=== PATIENT | female | born 1960 | race American Indian/Alaskan Native ===

== ENCOUNTER 2017-03-12 12:45 | Inpatient (IN) | payer BC ==
--- NOTE | 2017-03-12 13:14 | Emergency Department Report ---
HPI - General Chief Complaint: Dyspnea/Respdistress Time Seen by Provider: 03/12/17 12:49 - HPI HPI: This is a 56-year-old Afro-Niuean female presents to the emergency department via EMS from [facility] with complaint of shortness of breath, productive cough, wheezing. The patient has a history of COPD but is not oxygen dependent. She has a history of chronic bronchitis, CHF, and Durant's esophagus. She is due to have surgery secondary to her Durant's esophagus. The patient has an inhaler and breathing machine at home. However she forgot to bring her inhaler with her to [facility] and therefore was unable to treat or control her symptoms. She received breathing treatments, Solu-Medrol and magnesium in route and says she is feeling improved. She denies any chest pain, fever, back pain, nausea, vomiting or diaphoresis. ED Past Medical Hx - Past Medical History Previous Medical History?: Yes Hx Hypertension: Yes Hx Heart Attack/AMI: Yes (2000) Hx Congestive Heart Failure: Yes Hx Diabetes: No Hx Renal Disease: No Hx Asthma: Yes Hx COPD: Yes Additional medical history: high cholesterol. hypothyroidism. Barretts esophagitis. LVH. varicose veins; PVD - Surgical History Past Surgical History?: Yes Hx Coronary Stent: No Hx Open Heart Surgery: No Hx Pacemaker: No Additional Surgical History: partial hysterectomy, vascular procedure on left leg - Social History Smoking Status: Former Smoker Substance Use Type: Alcohol - Medications Home Medications: Home Medications Medication Instructions Recorded Confirmed Last Taken Type Aspirin [Aspirin BABY CHEW TAB] 81 mg PO QDAY 10/01/14 10/01/14 09/30/14 History Cholecalciferol (Vitamin D3) 5,000 unit PO DAILY 10/01/14 10/01/14 09/30/14 History [Vitamin D3] ISOSORBIDE MONOnitrate [Imdur ER] 30 mg PO DAILY 10/01/14 10/01/14 09/30/14 History Levothyroxine [Synthroid] 25 mcg PO DAILY 10/01/14 10/01/14 Unknown History ALBUTEROL Inhaler [ProAir HFA 2 puff IH QID PRN #1 inhalation 10/02/14 Unknown Rx Inhaler] Albuterol Sulfate [Albuterol 0.63% 0.63 mg IH TID PRN #30 ml 10/02/14 Unknown Rx NEBS] Carvedilol [Coreg] 6.25 mg PO BID #60 tablet 10/02/14 Unknown Rx Pantoprazole [Protonix] 40 mg PO BID #60 tablet 10/02/14 Unknown Rx Simvastatin [Zocor TAB] 20 mg PO QHS #30 tablet 10/02/14 Unknown Rx Diazepam [Valium] 10 mg PO QHS PRN #6 tab 06/13/16 Unknown Rx Ibuprofen [Motrin] 400 mg PO Q8H PRN #10 tablet 06/13/16 Unknown Rx ED Review of Systems ROS: Stated complaint: FLORES Other details as noted in HPI Comment: All other systems reviewed and negative Constitutional: denies: chills, fever Eyes: denies: eye pain, eye discharge, vision change ENT: denies: ear pain, throat pain Respiratory: cough, shortness of breath, wheezing Cardiovascular: denies: chest pain, edema Gastrointestinal: denies: abdominal pain, nausea, diarrhea Genitourinary: denies: urgency, dysuria, discharge Musculoskeletal: denies: back pain, joint swelling, arthralgia Skin: denies: rash, lesions Neurological: denies: headache, weakness, paresthesias Physical Exam - Physical Exam Vital Signs: Vital Signs 03/12/17 12:46 Temperature 98.4 F Pulse Rate 85 Respiratory 22 Rate Blood Pressure 173/85 O2 Sat by Pulse 97 Oximetry Physical Exam: GENERAL: The patient is well-developed well-nourished. HEENT: Normocephalic. Atraumatic. Extraocular motions are intact. Patient has moist mucous membranes. NECK: Supple. Trachea is midline. CHEST/LUNGS: Moderate wheezing throughout the chest. There is tachypnea but no accessory muscle use. There is no respiratory distress noted. HEART/CARDIOVASCULAR: Regular. There is no tachycardia. There is no gallop rub or murmur. ABDOMEN: Abdomen is soft, nontender. Patient has normal bowel sounds. There is no abdominal distention. SKIN: There is no rash. There is no edema. There is no diaphoresis. NEURO: The patient is awake, alert, and oriented. The patient is cooperative. The patient has no focal neurologic deficits. The patient has normal speech. MUSCULOSKELETAL: There is no tenderness or deformity. There is no limitation range of motion. There is no evidence of acute injury. ED Course Vital Signs 03/12/17 12:46 Temperature 98.4 F Pulse Rate 85 Respiratory 22 Rate Blood Pressure 173/85 O2 Sat by Pulse 97 Oximetry ED Medical Decision Making - Lab Data Result diagrams: 03/12/17 13:01 03/12/17 13:01 - Radiology Data Radiology results: report reviewed, image reviewed interpreted by me: Chest x-ray did not show any acute process. Heart is normal shape and size. No effusions. No pneumothorax. No signs of pneumonia seen. CT angiography of the chest shows a small peripheral pulmonary embolus to the left upper lobe laterally and inferiorly. - Medical Decision Making 56-year-old female presents with acute shortness of breath. There is most likely a COPD exacerbation component but the patient was also found to have a small pulmonary embolus. She will be admitted to the hospital for further evaluation and treatment and has been accepted for admission by the hospitalist , Dr. Kevin. - Differential Diagnosis COPD, asthma, PE, PA Critical Care Time: No Critical care attestation.: If time is entered above; I have spent that time in minutes in the direct care of this critically ill patient, excluding procedure time. ED Disposition Clinical Impression: History of Durant's esophagus, COPD exacerbation, Pulmonary embolism HTN (hypertension) Qualifiers: Hypertension type: essential hypertension Qualified Code(s): I10 - Essential ( primary) hypertension Disposition: 09 OP ADMIT IP TO THIS HOSP Is pt being admited?: Yes Condition: Stable Time of Disposition: 15:47
--- NOTE | 2017-03-12 13:28 | XRay Report ---
AP CHEST :03/12/17 12:45:00 CLINICAL: Shortness of breath. COMPARISON:05/15/15 FINDINGS: Normal heart and pulmonary vasculature. The lungs are normally expanded and clear. The bones and soft tissues are normal. IMPRESSION: Normal.No acute cardiopulmonary process.
[2017-03-12 13:33] LABS: Basophils % (Auto) 0.2 % (0.0-1.8); Hematocrit 44.4 % (30.3-42.9); Hemoglobin 14.4 gm/dl (10.1-14.3); Mean Corpuscular HGB Conc 32 % (30-34); Mean Corpuscular Hemoglobin 30 pg (28-32); Mean Corpuscular Volume 91 fl (79-97); Platelet Count 170 K/mm3 (140-440); Red Blood Count 4.89 M/mm3 (3.65-5.03); Red Cell Distribution Width 14.3 % (13.2-15.2); White Blood Count 6.1 K/mm3 (4.5-11.0)
[2017-03-12 13:37] LABS: Anion Gap 20 mmol/L; BUN/Creatinine Ratio 13.75; Blood Urea Nitrogen 11 mg/dL (7-17); Calcium 9.8 mg/dL (8.4-10.2); Carbon Dioxide 25 mmol/L (22-30); Chloride 102.1 mmol/L (98-107); Glucose 100 mg/dL (65-100); Potassium 4.2 mmol/L (3.6-5.0); Sodium 143 mmol/L (137-145)
[2017-03-12] MEDS ORDERED: NACL ONE (14:15)
[2017-03-12] MEDS ORDERED: PROVENTIL IH ONE (14:40)
--- NOTE | 2017-03-12 15:40 | Cat Scan Report ---
FINAL REPORT PROCEDURE: CT ANGIO CHEST TECHNIQUE: Computerized tomographic angiography of the chest was performed during the IV injection of iodinated nonionic contrast including image processing. The image data was postprocessed using 2-dimensional multiplanar reformatted (MPR) and 3-dimensional (MIP and/or volume rendered) techniques. HISTORY: SOB, elevated dimer COMPARISON: No prior studies are available for comparison. FINDINGS: Pulmonary outflow tract, right and left main pulmonary arteries and their proximal branches: There is a small filling defects seen in the inferior lateral aspect of the left upper lobe seen on coronal image sixty-three series 201, sagittal reconstruction image 103 series 2 and a few of the adjacent images and MIPS reformatted image 33 series 203. The small filling defect is consistent with a small pulmonary embolus. Pulmonary outflow branch right and left main pulmonary arteries and the remainder of the peripheral branches otherwise appear clear. Pericardium: No evidence of pericardial effusion. Thoracic aorta: No evidence of aneurysmal dilatation or dissection. Coronary arteries: Are unremarkable. Mediastinum and hilar regions: Nonspecific subcentimeter lymph nodes are visualized. No pathologically enlarged lymph nodes or masses are identified. Lung Calixto: Minimal linear atelectasis seen in the lung bases. Lungs otherwise are clear. Upper abdomen: No acute or focal abnormality is seeen. Other: No acute bony abnormalities are seen. IMPRESSION: Small peripheral pulmonary embolus peripheral branch left upper lobe laterally, inferiorly. Minimal linear atelectasis seen in the lung bases. Lungs otherwise are clear per
--- NOTE | 2017-03-12 16:24 | History and Physical Report ---
History of Present Illness Chief complaint: Im so short of breath History of present illness: 56 YO Female with COPD, CHF Systolic (EF 35%), HTN, PR, HLD, Hypothyroidism, Barrets Esophagus, PVD, Obesity, Asthma presents to ED for evaluation. Pt states that she has been experiencing shortness of breath, productive cough, wheezing for the past 3 days with worsening symptoms over the past 3 hours. Pt was travelling to [facility] and had worsening symptoms but did not have her inhaler. Pt seen and evaluated in ED and found to be in respiratory distress. Pt placed on supplemental oxygen, and treated with nebulizer therapy. Past History Past Medical History: COPD, heart failure, hypertension, hyperlipidemia, hypothyroidism, PVD Past Surgical History: hysterectomy, Other (Left leg surgery) Social history: single. denies: smoking, alcohol abuse, prescription drug abuse Family history: hypertension Medications and Allergies Allergies Allergy/AdvReac Type Severity Reaction Status Date / Time lisinopril [From Zestril] Allergy Shortness Verified 03/12/17 17:51 of Breath Home Medications Medication Instructions Recorded Confirmed Last Taken Type Aspirin [Aspirin BABY CHEW TAB] 81 mg PO QDAY 10/01/14 10/01/14 09/30/14 History Cholecalciferol (Vitamin D3) 5,000 unit PO DAILY 10/01/14 10/01/14 09/30/14 History [Vitamin D3] ISOSORBIDE MONOnitrate [Imdur ER] 30 mg PO DAILY 10/01/14 10/01/14 09/30/14 History Levothyroxine [Synthroid] 25 mcg PO DAILY 10/01/14 10/01/14 Unknown History ALBUTEROL Inhaler [ProAir HFA 2 puff IH QID PRN #1 inhalation 10/02/14 Unknown Rx Inhaler] Albuterol Sulfate [Albuterol 0.63% 0.63 mg IH TID PRN #30 ml 10/02/14 Unknown Rx NEBS] Carvedilol [Coreg] 6.25 mg PO BID #60 tablet 10/02/14 Unknown Rx Pantoprazole [Protonix] 40 mg PO BID #60 tablet 10/02/14 Unknown Rx Simvastatin [Zocor TAB] 20 mg PO QHS #30 tablet 10/02/14 Unknown Rx Diazepam [Valium] 10 mg PO QHS PRN #6 tab 06/13/16 Unknown Rx Ibuprofen [Motrin] 400 mg PO Q8H PRN #10 tablet 06/13/16 Unknown Rx Review of Systems All systems: negative Cardiovascular: shortness of breath Exam - Constitutional Vitals: Temp Pulse Resp BP Pulse Ox 98.4 F 82 20 173/85 97 03/12/17 12:46 03/12/17 15:49 03/12/17 15:49 03/12/17 12:46 03/12/17 15:11 General appearance: Present: mild distress, obese - EENT Eyes: Present: PERRL ENT: hearing intact, clear oral mucosa - Neck Neck: Present: supple, normal ROM - Respiratory Respiratory effort: labored Respiratory: bilateral: diminished - Cardiovascular Heart Sounds: Present: S1 & S2. Absent: rub, click - Extremities Extremities: pulses symmetrical, No edema Extremity abnormal: edema Peripheral Pulses: within normal limits - Abdominal General gastrointestinal: Present: soft, non-tender, non-distended, normal bowel sounds Female genitourinary: Present: normal - Integumentary Integumentary: Present: clear, warm, dry - Musculoskeletal Musculoskeletal: gait normal, strength equal bilaterally - Psychiatric Psychiatric: appropriate mood/affect, intact judgment & insight - Neurologic Neurologic: CNII-XII intact, moves all extremities Results - Labs CBC & Chem 7: 03/12/17 13:01 03/12/17 13:01 Labs: Abnormal lab results 03/12/17 03/12/17 Range/Units 13:01 13:01 Hgb 14.4 H (10.1-14.3) gm/dl Hct 44.4 H (30.3-42.9) % D-Dimer 1194.69 H (0-234) ng/mlDDU Assessment and Plan - Patient Problems (1) Acute respiratory failure Current Visit: Yes Status: Acute Qualifiers: Respiratory failure complication: R Plan to address problem: supplemental oxygen, nebs, aspiration precautions, counseling regarding avoiding respiratory triggers. (2) COPD exacerbation Current Visit: Yes Status: Acute Plan to address problem: Supplemental oxygen, nebs, steroids, IV abx, supportive care. (3) Pulmonary embolism Current Visit: Yes Status: Acute Qualifiers: Pulmonary embolism type: P Chronicity: C Acute cor pulmonale presence: A Plan to address problem: Therapeutic anticoagulation, supportive care. (4) Accelerated hypertension Current Visit: Yes Status: Acute Plan to address problem: monitor bp q shift, resume home medication. (5) DVT prophylaxis Current Visit: Yes Status: Acute
[2017-03-12] MEDS ORDERED: DUONEB *Not for PRN Use IH (17:00)
[2017-03-12] MEDS ORDERED: DULCOLAX PR PRN (17:07)
[2017-03-12] MEDS ORDERED: MILK OF MAGNESIA PO PRN (17:07)
[2017-03-12] MEDS ORDERED: ZOFRAN IV PRN (17:07)
[2017-03-12] MEDS ORDERED: TYLENOL PO PRN (17:07)
[2017-03-12] MEDS ORDERED: PROVENTIL IH PRN (17:24)
[2017-03-12] MEDS ORDERED: VALIUM PO PRN (17:38)
[2017-03-12] MEDS: ZITHROMAX 500 MG in NACL 0.9% 250ML 250 ML IV SCH (18:50)
[2017-03-12] MEDS: COREG PO SCH (23:13)
[2017-03-12] MEDS: ZOCOR PO SCH (23:13)
[2017-03-12] MEDS: ELIQUIS PO SCH (23:13)
[2017-03-12] MEDS: PROTONIX PO SCH (23:13)
[2017-03-13] MEDS: TYLENOL PO PRN ×3 (03:38→20:08)
[2017-03-13] MEDS: SYNTHROID PO SCH (05:11)
[2017-03-13] MEDS: IMDUR PO SCH (09:41)
[2017-03-13] MEDS: VITAMIN D3 PO SCH (09:42)
[2017-03-13] MEDS: BABY ASPIRIN PO SCH (09:43)
[2017-03-13] MEDS: ELIQUIS PO SCH ×2 (09:43→21:54)
[2017-03-13] MEDS: PROTONIX PO SCH ×2 (09:44→21:54)
[2017-03-13] MEDS: COREG PO SCH ×2 (09:44→21:55)
--- NOTE | 2017-03-13 10:12 | Progress Note ---
Assessment and Plan Assessment and plan: 1 Acute respiratory failure Frequent respiratory assessment When necessary oxygen Discussed with the patient regarding avoiding respiratory triggers 2 COPD exacerbation Duoneb Q8hrs ordered IV steroid Solu-Medrol ordered Continue IV antibiotic 3 Pulmonary embolism Patient started on anticoagulation Eliquis supportive care. 4 Accelerated hypertension resume antihypertensive home blood pressure medicine Closely monitor blood pressures 5. Hyperlipidemia We will resume home antilipid medicine Discussed with the patient the importance of physical exercise, low fat diet to improve cardiovascular diseases. 6 DVT prophylaxis Continue Eliquis History Interval history: Patient has uneventful overnight, Patient denies having shortness of breath, chest pain but reports productive cough and wheezing. Patient currently on 2LNC with oxygen saturation >92%, no acute reparatory distress noted. Hospitalist Physical - Constitutional Vitals: Temp Pulse Resp BP Pulse Ox 97.8 F 76 24 136/68 97 03/13/17 08:25 03/13/17 09:41 03/13/17 08:25 03/13/17 09:41 03/13/17 08:25 General appearance: Present: mild distress, obese - EENT Eyes: Present: PERRL ENT: hearing intact - Neck Neck: Present: supple - Respiratory Respiratory effort: labored, other (Mild Labored ) Respiratory: negative: wheezing - Cardiovascular Heart rate: 76 Rhythm: regular Heart Sounds: Present: S1 & S2 - Extremities Extremities: no ischemia, No edema Peripheral Pulses: within normal limits - Abdominal General gastrointestinal: soft, non-tender - Integumentary Integumentary: Present: clear, warm, dry - Psychiatric Psychiatric: appropriate mood/affect - Neurologic Neurologic: CNII-XII intact - Allied Health Allied health notes reviewed: nursing Results - Labs CBC & Chem 7: 03/12/17 13:01 03/12/17 13:01 Labs: Laboratory Last Values WBC 6.1 K/mm3 (4.5-11.0) 03/12/17 13:01 RBC 4.89 M/mm3 (3.65-5.03) 03/12/17 13:01 Hgb 14.4 gm/dl (10.1-14.3) H 03/12/17 13:01 Hct 44.4 % (30.3-42.9) H 03/12/17 13:01 MCV 91 fl (79-97) 03/12/17 13:01 MCH 30 pg (28-32) 03/12/17 13:01 MCHC 32 % (30-34) 03/12/17 13:01 RDW 14.3 % (13.2-15.2) 03/12/17 13:01 Plt Count 170 K/mm3 (140-440) 03/12/17 13:01 Lymph % (Auto) 32.8 % (13.4-35.0) 03/12/17 13:01 Churchill % (Auto) 6.7 % (0.0-7.3) 03/12/17 13:01 Eos % (Auto) 4.0 % (0.0-4.3) 03/12/17 13:01 Baso % (Auto) 0.2 % (0.0-1.8) 03/12/17 13:01 Lymph # 2.0 K/mm3 (1.2-5.4) 03/12/17 13:01 Churchill # 0.4 K/mm3 (0.0-0.8) 03/12/17 13:01 Eos # 0.2 K/mm3 (0.0-0.4) 03/12/17 13:01 Baso # 0.0 K/mm3 (0.0-0.1) 03/12/17 13:01 Seg Neutrophils % 56.3 % (40.0-70.0) 03/12/17 13:01 Seg Neutrophils # 3.4 K/mm3 (1.8-7.7) 03/12/17 13:01 D-Dimer 1194.69 ng/mlDDU (0-234) H 03/12/17 13:01 Sodium 143 mmol/L (137-145) 03/12/17 13:01 Potassium 4.2 mmol/L (3.6-5.0) 03/12/17 13:01 Chloride 102.1 mmol/L (98-107) 03/12/17 13:01 Carbon Dioxide 25 mmol/L (22-30) 03/12/17 13:01 Anion Gap 20 mmol/L 03/12/17 13:01 BUN 11 mg/dL (7-17) 03/12/17 13:01 Creatinine 0.8 mg/dL (0.7-1.2) 03/12/17 13:01 Estimated GFR > 60 ml/min 03/12/17 13:01 BUN/Creatinine Ratio 13.75 % 03/12/17 13:01 Glucose 100 mg/dL (65-100) 03/12/17 13: Calcium 9.8 mg/dL (8.4-10.2) 03/12/17 13:01 Troponin T < 0.010 ng/mL (0.00-0.029) 03/12/17 13:01 NT-Pro-B Natriuret Pep 173.0 pg/mL (0-900) 03/12/17 13:01
[2017-03-13] MEDS: DUONEB *Not for PRN Use IH SCH ×2 (13:40→19:39)
--- NOTE | 2017-03-13 16:33 | Admit Criteria Form ---
Admission Criteria Documentation: PULMONARY EMBOLISM Clinical Indications for Admission to Inpatient Care (Place 'X' for any and all applicable criteria): Admission is indicated for 1 or more of the following(1)(2)(3)(4)(5)(6)(7) [ ]I. Hypoxemia [ ]II. Vital sign abnormality (8) indicated by ALL of the following: [ ]a) Vital sign findings not as expected for chronic patient condition or baseline (eg, intentionally low, blood pressure in heart failure) [ Xb) Vital sign abnormality as indicated by 1 or more of the following [X ]l) Tachycardia [ ]ll) Hypotension [ ]lll) Orthostatic vital sign changes [ ]III. History of cancer [X ]IV. History of chronic cardiopulmonary disease (eg. CHF, coronary artery disease, COPD, cor pulmonale) [ ]V. Cardiac arrhythmias of intermediate concern [ ]. Right ventricular dysfunction (eg, by echocardiogram) [ ]VII. Positive cardiac biomarker (eg, troponin T or I > 0.1 ng/mL (mcg/L), highly sensitive troponin I assay greater than 0.014 ng/mL (mcg/L), BNP or NT proBNP > assay threshold)(8 )(10)(11) [ ]VIII. Need for IV narcotics (eg, to treat dyspnea) 1 or more of following: [ ]a) Bleeding before anticoagulation [ ]b) Recent surgery (eg, within 3 months) that increases risk of catastrophic bleeding (eg, spinal surgery, intracranial surgery, cardiovascular surgery) [ ]c) Recent GI bleeding (eg, within 3 months) or known increased risk of GI bleed (eg,esophageal varices, current ulcer) [ ]d) Recent (eg, within 3 months) ischemic stroke [ ]e) History of intracranial bleeding (eg, hemorrhagic stroke) [ ]f) History of active bleeding when anticoagulated [ ]g) Active substance abuse [ ]h) Other risk factor thought to place patient at high risk such that ability to rapidly reverse reversal agent) [ ]X. Documented extensive thrombosis (eg, clot in vena cava or above iliofemoral bifurcation) [ ]Xl. Thrombolysis (eg, catheter-directed) or pharmacomechanical thrombectomy needed[A][B](8) [ ]XIl. Vena cava filter placement needed (eg, unable to anticoagulate)[C](8) [ ]Xlll. with delivery planned (eg, 37 or more weeks' gestation)(14 ) [ ]XlV. Limb-threatening thrombosis (eg, phlegmasia cerula dolens) [ ]XV. Embolism while on anti-coagulation [ ]XVl. Contraindication to outpatient use of medication with rapid anticoagulation effect as indicated by ALL of the following: [ ] a) Contraindication to use of oyk-jbqovxsen-xiirqy heparin[E][F ] indicated by 1 or more of the following(16): [ ] i) Documented current or history of heparin-induced thrombocytopenia(15) [ ] ii) Severe thrombocytopenia (eg, platelet count less than 50 ,000/mm3 (50 x109/L)) [ ] iii) Allergy to heparin, sbj-pcubkgyty-zzqyjm heparin, or product component [ ] iv) Renal failure (creatinine clearance less than 30 mL/min/ 1.73m2 (0.50 mL/sec/1.73m2) or on dialysis) [ ] v) Need for neuraxial anesthesia or spinal puncture anticipated [ ] vi) Inability to manage self-injection (eg. By patient, caregiver, or visiting nurse) [ ] b) Contraindication to use of fondaparinux indicated by 1 or more of the following: [ ] i) Documented current or history of heparin-induced thrombocytopenia (15) [ ] ii) Severe thrombocytopenia (eg, platelet count less than 50 ,000/mm3 (50 x109/L)) [ ] iii) Allergy to fondaparinux, related drugs, or product components [ ] iv) Renal failure (creatinine clearance less than 30 mL/min/ 1.73m2 (0.50 mL/sec/1.73m2) or on dialysis) [ ] v) [ ] vi) Liver disease with coagulopathy (eg, elevated INR due to liver disease) [ ] vii) Mechanical heart valve [ ] viii) Need for neuraxial anesthesia or spinal puncture anticipated [ ] xi) Inability to manage self-injection (eg, by patient, caregiver, or visiting nurse) [ ] c) Contraindication to use of an oral direct thrombin inhibitor (eg, dabigatran) or an oral coagulation factor Xa inhibitor (eg, rivaroxaban, apixaban)[E][F] indicated by 1 or more of the following(17)(18): [ ] i) Severe thrombocytopenia (eg, platelet count less than 50, 000/mm3 (50 x109/L)) [ ] ii) Allergy to medication or product components x109/L)) [ ] iii) Renal failure (creatinine clearance less than 30 mL/min /1.73m2 (0.50 mL/sec/1.73m2) or on dialysis) [ ] iv) [ ] v) Liver disease with coagulopathy (eg, elevated INR due to liver disease) [ ] vi) Mechanical heart valve [ ] vii) Need for neuraxial anesthesia or spinal puncture anticipated [ ]XVll. Inpatient admission required rather than observation care (Also use Pulmonary Embolism: Observation Care guideline as appropriate) because of ANY ONE of the following: [ ] a) Significant autoimmune (thrombocytopenia) or coagulopathic reaction occurs in response to anticoagulation [ ] b) Respiratory symptoms (eg, tachypnea, dyspnea) that are severe or persistent [ ] c) Other condition, treatment, or monitoring requiring inpatient admission The original [employer] content created by [employer] has been revised. The portions of the content which have been revised are identified through the use of italic text or in bold, and [facility] has neither reviewed nor approved the modified material. All other unmodified content is copyright [employer]. Please see references footnoted in the original [employer] edition 2017 Admission Criteria Met: Yes
[2017-03-13] MEDS: ZITHROMAX 500 MG in NACL 0.9% 250ML 250 ML IV SCH (18:56)
--- NOTE | 2017-03-13 19:58 | Event Note ---
Date: 03/13/17 Reason seen and evaluated along with the nurse practitioner, medical records reviewed, formulated the plan of care. Physical examination performed, Agree with the plan of care, possible discharge home tomorrow on Eliquis and oral antibiotics
[2017-03-13] MEDS: ZOCOR PO SCH (21:54)
[2017-03-14] MEDS: TYLENOL PO PRN (02:13)
[2017-03-14] MEDS ORDERED: ALUM-MAG HYDROX-SIMETH 200-200-20MG/5ML PO ONE (02:45)
[2017-03-14] MEDS: SYNTHROID PO SCH (06:52)
--- NOTE | 2017-03-14 07:33 | Discharge Summary ---
<FRANKIE ROMAN - Last Filed: 03/21/17 14:22> Providers - Providers Date of Admission: 03/12/17 17:14 Date of discharge: 03/14/17 Attending physician: TAMI MURPHY Primary care physician: MANAGER VIDEO GAMES Hospitalization Condition: Stable Hospital course: Patient is a 56 years old Female with COPD, CHF Systolic (EF 35%), HTN, AR, HLD , Hypothyroidism, Barrets Esophagus, PVD, Obesity, Asthma presents to ED for evaluation. Patient came in with shortness of breath, productive cough, wheezing for the past 3 days with worsening symptoms over the past 3 hours. Patient was diagnosed with acute respiratory failure, Pulmonary embolism, accelerated hypertension and hyperlipidemia. She was treated with supplemental oxygen, aggressive nebulizer therapy, IV steroids, antihypertensive medication and antibiotics. Patient completed a full course of antibiotic. Also patient was treated with anticoagulant for pulmonary embolism. She is being discharged on oral anticoagulant. Also D/C with oral steroid taper upon discharge. Patient clinically improved and stable for discharge. Patient was advised to follow up with her primary care. Disposition: - TO HOME OR SELFCARE Core Measure Documentation - Palliative Care Palliative Care/ Comfort Measures: Not Applicable - Core Measures Any of the following diagnoses?: DVT/PE (plus) - VTE Discharge Requirements Deep Vein Thrombosis/Pulmonary Embolism Present on Admission: Yes Has pt received <5 days of overlap therapy or INR<2.0: No Anticoagulant overlap therapy prescribed at discharge: Yes Exam - Physical Exam Narrative exam: Patient verbalized feeling better and ready to go home. She denies shortness of breath, productive cough or wheezing - Constitutional Vitals: Temp Pulse Resp BP Pulse Ox 97.7 F 85 19 118/60 96 03/13/17 20:15 03/13/17 21:55 03/14/17 03:13 03/13/17 21:55 03/13/17 20:15 General appearance: Present: well-nourished - EENT Eyes: Present: PERRL ENT: hearing intact - Neck Neck: Present: supple - Respiratory Respiratory effort: normal Respiratory: bilateral: CTA - Cardiovascular Heart rate: 70 Rhythm: regular - Extremities Extremities: no ischemia Peripheral Pulses: within normal limits - Abdominal General gastrointestinal: Present: soft, non-tender Female genitourinary: Present: deferred - Rectal Rectal Exam: deferred - Integumentary Integumentary: Present: clear, warm, dry - Musculoskeletal Musculoskeletal: strength equal bilaterally - Psychiatric Psychiatric: appropriate mood/affect - Neurologic Neurologic: CNII-XII intact - Allied Health Allied health notes reviewed: nursing Plan Activity: no restrictions Weight Bearing Status: Weight Bear as Tolerated Diet: low fat, low cholesterol Follow up with: PRIMARY CARE, [Primary Care Provider] - 3-5 Days Prescriptions: Apixaban [Eliquis] 5 mg PO BID #42 tablet Apixaban [Eliquis] 2 tab PO BID #24 tablet predniSONE [Deltasone] 10 mg PO QDAY #10 tab <TAMI MURPHY - Last Filed: 03/22/17 07:18> Providers - Providers Date of Admission: 03/12/17 17:14 Attending physician: TAMI MURPHY Primary care physician: MANAGER VIDEO GAMES Hospitalization Hospital course: I saw and evaluated the patient. I agree with the findings and the plan of care as documented in the Nurse Practitioner's~note, with the following corrections and additions. Time spent for discharge: 32 min Core Measure Documentation - Palliative Care Palliative Care/ Comfort Measures: Not Applicable - VTE Discharge Requirements Has pt received <5 days of overlap therapy or INR<2.0: Yes Anticoagulant overlap therapy prescribed at discharge: No Contraindication No Overlap Therapy order at DC: Not Indicated (patient on Eliquis) Exam - Constitutional Vitals: Temp Pulse Resp BP Pulse Ox 97.9 F 70 18 127/65 99 03/14/17 11:13 03/14/17 11:13 03/14/17 11:13 03/14/17 11:13 03/14/17 11:13
[2017-03-14] MEDS: DUONEB *Not for PRN Use IH SCH (09:23)
[2017-03-14] MEDS ORDERED: ZITHROMAX PO SCH (10:00)
[2017-03-14] MEDS: BABY ASPIRIN PO SCH (10:20)
[2017-03-14] MEDS: PROTONIX PO SCH (10:20)
[2017-03-14] MEDS: COREG PO SCH (10:20)
[2017-03-14] MEDS: ELIQUIS PO SCH (10:21)
[2017-03-14] MEDS: IMDUR PO SCH (10:22)
[2017-03-14] MEDS: VITAMIN D3 PO SCH (10:22)
--- NOTE | 2017-03-14 12:09 | Discharge Summary ---
<TAMI MURPHY - Last Filed: 03/14/17 11:57> Providers - Providers Date of Admission: 03/12/17 17:14 Date of discharge: 03/14/17 Attending physician: TAMI MURPHY Primary care physician: COMMUNICATIONS TECHNOLOGIST Hospitalization Condition: Stable Disposition: DC-01 TO HOME OR SELFCARE Core Measure Documentation - Palliative Care Palliative Care/ Comfort Measures: Not Applicable - Core Measures Any of the following diagnoses?: DVT/PE - VTE Discharge Requirements Deep Vein Thrombosis/Pulmonary Embolism Present on Admission: Yes Has pt received <5 days of overlap therapy or INR<2.0: Yes (On eliquis) Anticoagulant overlap therapy prescribed at discharge: No Contraindication No Overlap Therapy order at DC: Not Indicated (On Eliquis) Exam - Constitutional Vitals: Temp Pulse Resp BP Pulse Ox 98.0 F 72 20 124/76 98 03/14/17 08:07 03/14/17 10:22 03/14/17 08:07 03/14/17 10:22 03/14/17 08:07 Plan Activity: no restrictions Diet: other (cardiac diet) Follow up with: PRIMARY CARE, [Primary Care Provider] - 3-5 Days Prescriptions: Apixaban [Eliquis] 5 mg PO BID #42 tablet Apixaban [Eliquis] 2 tab PO BID #24 tablet predniSONE [Deltasone] 10 mg PO QDAY #10 tab <FRANKIE ROMAN - Last Filed: 03/14/17 14:34> Providers - Providers Date of Admission: 03/12/17 17:14 Attending physician: TAMI MURPHY Primary care physician: HEMANTH URRUTIA MD Exam - Constitutional Vitals: Temp Pulse Resp BP Pulse Ox 97.9 F 70 18 127/65 99 03/14/17 11:13 03/14/17 11:13 03/14/17 11:13 03/14/17 11:13 03/14/17 11:13
[2017-03-14 12:38] VITALS: BP 127/65
== END 2017-03-14 13:10 | disposition home or self-care (01) | DRG 175 ==
LOC: ED 12:45 → 3A 17:14
PROVIDERS: ADMIT Internal Medicine; ATTEND Internal Medicine
DX: I26.99 Other pulmonary embolism without acute cor pulmonale (principal); J96.00 Acute respiratory failure, unspecified whether with hypoxia or hypercapnia; J44.1 Chronic obstructive pulmonary disease with (acute) exacerbation; I50.20 Unspecified systolic (congestive) heart failure; I11.0 Hypertensive heart disease with heart failure; K22.70 Barrett's esophagus without dysplasia; I25.2 Old myocardial infarction; E03.9 Hypothyroidism, unspecified; E78.5 Hyperlipidemia, unspecified; I73.9 Peripheral vascular disease, unspecified; E66.9 Obesity, unspecified; Z68.35 Body mass index [BMI] 35.0-35.9, adult; Z82.49 Family history of ischemic heart disease and other diseases of the circulatory system; Z88.8 Allergy status to other drugs, medicaments and biological substances; Z90.710 Acquired absence of both cervix and uterus; Z87.891 Personal history of nicotine dependence; Z79.82 Long term (current) use of aspirin
CPT/HCPCS: 36415; 71010; 71275; 80048; 83880; 84484; 85025; 85379; 93005; 93010; 94640; 94644; 94760; J0456; J2920; J7050; Q9967

== ENCOUNTER 2017-05-28 09:37 | Emergency (ER) | payer BC ==
[2017-05-28] MEDS ORDERED: PROVENTIL IH ONE ×2 (09:46→12:53)
[2017-05-28] MEDS ORDERED: MAGNESIUM SULFATE 2GM/50ML 2 GM/50 ML BAG IV ONE (10:27)
[2017-05-28] MEDS ORDERED: DUONEB *Not for PRN Use IH ONE (10:28)
[2017-05-28] MEDS ORDERED: NACL 0.9% 1000 ML 1,000 ML IV ONE (10:28)
[2017-05-28 10:43] LABS: Hematocrit 38.7 % (30.3-42.9); Mean Corpuscular HGB Conc 34 % (30-34); Mean Corpuscular Hemoglobin 31 pg (28-32); Mean Corpuscular Volume 91 fl (79-97); Platelet Count 180 K/mm3 (140-440); Red Blood Count 4.25 M/mm3 (3.65-5.03); Red Cell Distribution Width 14.5 % (13.2-15.2); White Blood Count 8.3 K/mm3 (4.5-11.0)
[2017-05-28 10:52] LABS: INR 0.9 (0.87-1.13)
[2017-05-28 10:53] LABS: Partial Thromboplastin Time 25.2 Sec. (24.2-36.6)
[2017-05-28 11:00] LABS: Anion Gap 17 mmol/L; Blood Urea Nitrogen 18 mg/dL (7-17); Calcium 9.1 mg/dL (8.4-10.2); Carbon Dioxide 27 mmol/L (22-30); Chloride 101.1 mmol/L (98-107); Glucose 93 mg/dL (65-100); Potassium 4.1 mmol/L (3.6-5.0); Sodium 141 mmol/L (137-145)
--- NOTE | 2017-05-28 11:02 | XRay Report ---
Single view chest: Compared to 05/24/17. History: Difficulty breathing. Findings: Borderline cardiomegaly. Trachea is midline. No consolidation, pneumothorax or pleural effusion. Impression: No acute cardiopulmonary findings.
[2017-05-28 11:05] LABS: Alanine Aminotransferase 22 units/L (7-56); Albumin/Globulin Ratio 1.6 %; Alkaline Phosphatase 109 units/L (35-129); Creatine Kinase 239 units/L (30-135); Creatine Kinase MB 2.3 ng/mL (0.0-4.0); Total Protein 6.5 g/dL (6.3-8.2)
[2017-05-28 11:06] LABS: Bilirubin,Direct < 0.2 mg/dL (0-0.2)
--- NOTE | 2017-05-28 12:58 | Emergency Department Report ---
ED Shortness of Breath HPI - General Chief Complaint: Dyspnea/Respdistress Stated Complaint: SPITTING UP BLOOD Time Seen by Provider: 05/28/17 10:26 Source: patient Mode of arrival: Ambulatory Limitations: No Limitations - History of Present Illness Initial Comments: Patient was discharged from hospital yesterday. She placed her prescription and at her local pharmacy but it was not yet ready. She did not take a nap at home because she did not have her medicines as of yet. She states that she coughed and noticed a minimal amount of blood streaked sputum white phlegm. He' s had a recent CTA that was negative for pulmonary embolism she does not complain of chest pain. She is here for wheezing. MD Complaint: "asthma attack" -: minutes(s), hour(s) Consistency: constant Improves With: nothing Worsens With: nothing Known History Of: COPD Context: other (recent discharge) Associated Symptoms: denies other symptoms ( recent) - Related Data Home Medications Medication Instructions Recorded Confirmed Last Taken Aspirin [Aspirin BABY CHEW TAB] 81 mg PO QDAY 10/01/14 05/28/17 05/27/17 Cholecalciferol (Vitamin D3) 5,000 unit PO DAILY 10/01/14 05/28/17 05/27/17 [Vitamin D3] Citalopram [celeXA] 10 mg PO QDAY 05/25/17 05/28/17 05/27/17 ISOSORBIDE MONOnitrate [Imdur ER] 30 mg PO QDAY 05/25/17 05/28/17 05/27/17 Levothyroxine [Synthroid] 125 mcg PO QDAY 05/25/17 05/28/17 05/27/17 Loratadine [Claritin] 10 mg PO Q48H 05/25/17 05/28/17 05/27/17 Losartan [Cozaar] 50 mg PO QDAY 05/25/17 05/28/17 05/27/17 Mirtazapine [Remeron] 15 mg PO QHS 05/25/17 05/28/17 05/27/17 Apixaban [Eliquis] 5 mg PO BID 05/27/17 05/28/17 05/27/17 AtorvaSTATin [Lipitor] mg PO QHS 05/28/17 05/27/17 Previous Rx's Medication Instructions Recorded Last Taken Type ALBUTEROL Inhaler [ProAir HFA 2 puff IH QID PRN #1 inhalation 10/02/14 05/27/17 Rx Inhaler] Pantoprazole [Protonix TAB] 40 mg PO BID #60 tablet 10/02/14 05/27/17 Rx Albuterol Sulfate [Albuterol 0.63% 0.63 mg IH TID PRN #30 ml 05/27/17 05/27/17 Rx NEBS] Benzonatate [Tessalon Perles] 100 mg PO Q8HR PRN #30 capsule 05/27/17 05/27/17 Rx Metoprolol [Lopressor TAB] 50 mg PO BID #60 tablet 05/27/17 05/27/17 Rx Prednisone [predniSONE 10 mg 10 mg PO .TAPER #1 tab.ds.pk 05/27/17 05/27/17 Rx (6-Day Pack, 21 Tabs)] Azithromycin [Zithromax Z-YENIFER] 250 mg PO DAILY #6 tablet 05/28/17 Unknown Rx Allergies Allergy/AdvReac Type Severity Reaction Status Date / Time lisinopril [From Zestril] Allergy Shortness Verified 03/12/17 17:51 of Breath ED Review of Systems ROS: Stated complaint: SPITTING UP BLOOD Other details as noted in HPI Constitutional: denies: chills, fever Eyes: denies: eye pain, eye discharge, vision change ENT: denies: ear pain, throat pain Respiratory: see HPI, cough, wheezing. denies: shortness of breath Cardiovascular: denies: chest pain, palpitations Endocrine: no symptoms reported Gastrointestinal: denies: abdominal pain, nausea, diarrhea Genitourinary: denies: urgency, dysuria, discharge Musculoskeletal: denies: back pain, joint swelling, arthralgia Skin: denies: rash, lesions Neurological: denies: headache, weakness, paresthesias Psychiatric: denies: anxiety, depression Hematological/Lymphatic: denies: easy bleeding, easy bruising ED Past Medical Hx - Past Medical History Hx Hypertension: Yes Hx Heart Attack/AMI: Yes Hx Congestive Heart Failure: Yes Hx Diabetes: No Hx Renal Disease: No Hx Asthma: Yes Hx COPD: Yes Hx HIV: No Additional medical history: high cholesterol. hypothyroidism. Barretts esophagitis. LVH. varicose veins; PVD - Surgical History Hx Coronary Stent: No Hx Open Heart Surgery: No Hx Pacemaker: No Additional Surgical History: partial hysterectomy, vascular procedure on left leg - Social History Smoking Status: Never Smoker Substance Use Type: None - Medications Home Medications: Home Medications Medication Instructions Recorded Confirmed Last Taken Type Aspirin [Aspirin BABY CHEW TAB] 81 mg PO QDAY 10/01/14 05/28/17 05/27/17 History Cholecalciferol (Vitamin D3) 5,000 unit PO DAILY 10/01/14 05/28/17 05/27/17 History [Vitamin D3] ALBUTEROL Inhaler [ProAir HFA 2 puff IH QID PRN #1 inhalation 10/02/14 05/28/17 05/27/17 Rx Inhaler] Pantoprazole [Protonix TAB] 40 mg PO BID #60 tablet 10/02/14 05/28/17 05/27/17 Rx Citalopram [celeXA] 10 mg PO QDAY 05/25/17 05/28/17 05/27/17 History ISOSORBIDE MONOnitrate [Imdur ER] 30 mg PO QDAY 05/25/17 05/28/17 05/27/17 History Levothyroxine [Synthroid] 125 mcg PO QDAY 05/25/17 05/28/17 05/27/17 History Loratadine [Claritin] 10 mg PO Q48H 05/25/17 05/28/17 05/27/17 History Losartan [Cozaar] 50 mg PO QDAY 05/25/17 05/28/17 05/27/17 History Mirtazapine [Remeron] 15 mg PO QHS 05/25/17 05/28/17 05/27/17 History Albuterol Sulfate [Albuterol 0.63% 0.63 mg IH TID PRN #30 ml 05/27/17 05/28/17 05/27/17 Rx NEBS] Apixaban [Eliquis] 5 mg PO BID 05/27/17 05/28/17 05/27/17 History Benzonatate [Tessalon Perles] 100 mg PO Q8HR PRN #30 capsule 05/27/17 05/28/17 05/27/17 Rx Metoprolol [Lopressor TAB] 50 mg PO BID #60 tablet 05/27/17 05/28/17 05/27/17 Rx Prednisone [predniSONE 10 mg 10 mg PO .TAPER #1 tab.ds.pk 05/27/17 05/28/17 Rx (6-Day Pack, 21 Tabs)] AtorvaSTATin [Lipitor] mg PO QHS 05/28/17 05/27/17 History Azithromycin [Zithromax Z-YENIFER] 250 mg PO DAILY #6 tablet 05/28/17 Unknown Rx ED Physical Exam - General Limitations: No Limitations General appearance: alert, in no apparent distress - Head Head exam: Present: atraumatic, normocephalic - Eye Eye exam: Present: normal appearance. Absent: scleral icterus - ENT ENT exam: Present: mucous membranes moist - Neck Neck exam: Present: normal inspection - Respiratory Respiratory exam: Present: wheezes (bilaterally), decreased breath sounds. Absent: normal lung sounds bilaterally, respiratory distress, accessory muscle use - Cardiovascular Cardiovascular Exam: Present: regular rate, normal rhythm. Absent: systolic murmur, diastolic murmur, rubs, gallop - GI/Abdominal GI/Abdominal exam: Present: soft, normal bowel sounds. Absent: distended, tenderness, guarding, rebound, rigid - Extremities Exam Extremities exam: Present: normal inspection - Back Exam Back exam: Present: normal inspection - Neurological Exam Neurological exam: Present: alert, oriented X3, CN II-XII intact. Absent: motor sensory deficit - Psychiatric Psychiatric exam: Present: normal affect, normal mood - Skin Skin exam: Present: warm, dry, intact, normal color. Absent: rash ED Course Vital Signs 05/28/17 05/28/17 05/28/17 09:40 10:12 10:15 Temperature 98.7 F Pulse Rate 86 84 Pulse Rate [ Anterior Bilateral Throughout] Pulse Rate [ 84 Posterior Bilateral Throughout] Respiratory 20 19 Rate Respiratory Rate [Anterior Bilateral Throughout] Respiratory 20 Rate [Posterior Bilateral Throughout] Blood Pressure 172/104 165/107 Blood Pressure [Left] O2 Sat by Pulse 95 98 99 Oximetry 05/28/17 05/28/17 05/28/17 10:31 10:39 10:44 Temperature Pulse Rate 84 Pulse Rate [ 86 Anterior Bilateral Throughout] Pulse Rate [ 91 H Posterior Bilateral Throughout] Respiratory 23 Rate Respiratory 20 Rate [Anterior Bilateral Throughout] Respiratory 20 Rate [Posterior Bilateral Throughout] Blood Pressure 165/107 Blood Pressure [Left] O2 Sat by Pulse 96 Oximetry 09/05/28/17 05/28/17 10:45 11:01 11:15 Temperature Pulse Rate 82 106 H 106 H Pulse Rate [ 94 H Anterior Bilateral Throughout] Pulse Rate [ Posterior Bilateral Throughout] Respiratory 21 25 H 25 H Rate Respiratory 20 Rate [Anterior Bilateral Throughout] Respiratory Rate [Posterior Bilateral Throughout] Blood Pressure 165/107 149/99 149/99 Blood Pressure [Left] O2 Sat by Pulse 99 93 96 Oximetry 05/28/17 05/28/17 05/28/17 11:18 11:31 11:45 Temperature 97.6 F Pulse Rate 78 92 H 91 H Pulse Rate [ Anterior Bilateral Throughout] Pulse Rate [ Posterior Bilateral Throughout] Respiratory 16 38 H 28 H Rate Respiratory Rate [Anterior Bilateral Throughout] Respiratory Rate [Posterior Bilateral Throughout] Blood Pressure 149/99 149/99 Blood Pressure 157/104 [Left] O2 Sat by Pulse 100 92 91 Oximetry 05/28/17 05/28/17 05/28/17 12:00 12:15 12:31 Temperature Pulse Rate 83 84 82 Pulse Rate [ Anterior Bilateral Throughout] Pulse Rate [ Posterior Bilateral Throughout] Respiratory 17 12 12 Rate Respiratory Rate [Anterior Bilateral Throughout] Respiratory Rate [Posterior Bilateral Throughout] Blood Pressure 135/74 135/74 135/74 Blood Pressure [Left] O2 Sat by Pulse 93 94 96 Oximetry - Reevaluation(s) Reevaluation #1: Improved well with nebs, magnesium, Solu-Medrol. States ready for discharge. Will add azithromycin to her regimen for her cough. Discharged in improved condition. States will brain picker her meds. 05/28/17 12:56 05/28/17 12:57 ED Medical Decision Making - Lab Data Result diagrams: 05/28/17 10:14 05/28/17 10:14 Laboratory Results - last 24 hr 05/28/17 05/28/17 05/28/17 10:14 10:14 10:14 WBC 8.3 RBC 4.25 Hgb 13.0 Hct 38.7 MCV 91 MCH 31 MCHC 34 RDW 14.5 Plt Count 180 Lymph % (Auto) 11.1 L Ness % (Auto) 10.9 H Eos % (Auto) 0.0 Baso % (Auto) 0.0 Lymph # 0.9 L Ness # 0.9 H Eos # 0.0 Baso # 0.0 Seg Neutrophils % 78.0 H Seg Neutrophils # 6.4 PT 12.0 L INR 0.90 APTT 25.2 Sodium 141 Potassium 4.1 Chloride 101.1 Carbon Dioxide 27 Anion Gap 17 BUN 18 H Creatinine 0.6 L Estimated GFR > 60 BUN/Creatinine Ratio 30.00 Glucose 93 Calcium 9.1 Total Bilirubin Direct Bilirubin AST ALT Alkaline Phosphatase Total Creatine Kinase CK-MB (CK-2) CK-MB (CK-2) Rel Index Troponin T < 0.010 NT-Pro-B Natriuret Pep Total Protein Albumin Albumin/Globulin Ratio 05/28/17 10:14 WBC RBC Hgb Hct MCV MCH MCHC RDW Plt Count Lymph % (Auto) Ness % (Auto) Eos % (Auto) Baso % (Auto) Lymph # Ness # Eos # Baso # Seg Neutrophils % Seg Neutrophils # PT INR APTT Sodium Potassium Chloride Carbon Dioxide Anion Gap BUN Creatinine Estimated GFR BUN/Creatinine Ratio Glucose Calcium Total Bilirubin 0.40 Direct Bilirubin < 0.2 AST 25 ALT 22 Alkaline Phosphatase 109 Total Creatine Kinase 239 H CK-MB (CK-2) 2.3 CK-MB (CK-2) Rel Index 0.9 Troponin T NT-Pro-B Natriuret Pep 610.0 Total Protein 6.5 Albumin 4.0 Albumin/Globulin Ratio 1.6 - EKG Data EKG shows normal: sinus rhythm, axis, intervals - EKG Data When compared to previous EKG there are: no significant change Interpretation: no acute changes, LVH (with nonspecific changes) - Radiology Data interpreted by me: Chest x-ray shows no acute process Critical care attestation.: If time is entered above; I have spent that time in minutes in the direct care of this critically ill patient, excluding procedure time. ED Disposition Clinical Impression: Acute exacerbation of COPD with asthma, Acute bronchitis Disposition: TO HOME OR SELFCARE Is pt being admited?: No Does the pt Need Aspirin: No Condition: Stable Instructions: Asthma (ED), Chronic Obstructive Pulmonary Disease (ED), Acute Bronchitis (ED) Additional Instructions: Home meds as directed. Follow-up as instructed. Return if any further problem. Rx azithromycin for bronchitis. Prescriptions: Azithromycin [Zithromax Z-YENIFER] 250 mg PO DAILY #6 tablet Referrals: PRIMARY CARE, [Primary Care Provider] - 3-5 Days Time of Disposition: 12:57
[2017-05-28 13:56] VITALS: BP 150/84
== END 2017-05-28 13:56 | disposition home or self-care (01) ==
LOC: ED 09:37
DX: J45.901 Unspecified asthma with (acute) exacerbation (principal); J44.1 Chronic obstructive pulmonary disease with (acute) exacerbation; J20.9 Acute bronchitis, unspecified; I25.2 Old myocardial infarction; I50.9 Heart failure, unspecified; J45.909 Unspecified asthma, uncomplicated; E78.00 Pure hypercholesterolemia, unspecified
CPT/HCPCS: 36415; 71010; 80048; 80074; 82550; 82553; 83880; 84484; 85025; 85610; 85730; 93005; 93010; 94640; 96365; 96375; 99284; J2930; J3475; J7030

== ENCOUNTER 2017-08-24 08:36 | Inpatient (IN) | payer BC ==
[2017-08-24] MEDS ORDERED: ATROVENT IH ONE ×2 (08:58→10:01)
[2017-08-24] MEDS ORDERED: PROVENTIL IH ONE ×2 (08:58→10:01)
[2017-08-24] MEDS ORDERED: MAGNESIUM SULFATE 2GM/50ML 2 GM/50 ML BAG IV ONE (08:59)
--- NOTE | 2017-08-24 09:12 | Emergency Department Report ---
HPI - General Chief Complaint: Dyspnea/Respdistress Time Seen by Provider: 08/24/17 08:53 - HPI HPI: Room 2 The patient is a 56-year-old female presents with a chief complaint of shortness of breath. The patient states for the past 3 days she's had wheezing and shortness of breath and feels like her asthma. Patient states she was instructed by her primary physician if her peak flows are less than 350 for 3 days in a row despite taking her prednisone (started yesterday) and nebulizers every 4 hours she should come to the emergency department. The patient states the above treatments have not helped prompt her to come to the ED. The patient states she's had a cough productive for white sputum. Patient denies any history of fever Location: Lungs Duration: 3 days Quality: Like asthma Severity: Moderate Modifying factors: [see above] Context: [see above] Mode of transportation: [not driving] ED Past Medical Hx - Past Medical History Hx Hypertension: Yes Hx Heart Attack/AMI: Yes Hx Congestive Heart Failure: Yes Hx Asthma: Yes Hx COPD: Yes Additional medical history: high cholesterol. hypothyroidism. Barretts esophagitis. LVH. varicose veins; PVD - Surgical History Additional Surgical History: partial hysterectomy, vascular procedure on left leg - Family History Family history: no significant - Social History Smoking Status: Former Smoker (none 18 months) Substance Use Type: Alcohol (occasional) - Medications Home Medications: Home Medications Medication Instructions Recorded Confirmed Last Taken Type Aspirin [Aspirin BABY CHEW TAB] 81 mg PO QDAY 10/01/14 05/28/17 05/27/17 History Cholecalciferol (Vitamin D3) 5,000 unit PO DAILY 10/01/14 05/28/17 05/27/17 History [Vitamin D3] ALBUTEROL Inhaler [ProAir HFA 2 puff IH QID PRN #1 inhalation 10/02/14 05/28/17 05/27/17 Rx Inhaler] Pantoprazole [Protonix TAB] 40 mg PO BID #60 tablet 10/02/14 05/28/17 05/27/17 Rx Citalopram [celeXA] 10 mg PO QDAY 05/25/17 05/28/17 05/27/17 History ISOSORBIDE MONOnitrate [Imdur ER] 30 mg PO QDAY 05/25/17 05/28/17 05/27/17 History Levothyroxine [Synthroid] 125 mcg PO QDAY 05/25/17 05/28/17 05/27/17 History Loratadine [Claritin] 10 mg PO Q48H 05/25/17 05/28/17 05/27/17 History Losartan [Cozaar] 50 mg PO QDAY 05/25/17 05/28/17 05/27/17 History Mirtazapine [Remeron] 15 mg PO QHS 05/25/17 05/28/17 05/27/17 History Albuterol Sulfate [Albuterol 0.63% 0.63 mg IH TID PRN #30 ml 05/27/17 05/28/17 05/27/17 Rx NEBS] Apixaban [Eliquis] 5 mg PO BID 05/27/17 05/28/17 05/27/17 History Benzonatate [Tessalon Perles] 100 mg PO Q8HR PRN #30 capsule 05/27/17 05/28/17 05/27/17 Rx Metoprolol [Lopressor TAB] 50 mg PO BID #60 tablet 05/27/17 05/28/17 05/27/17 Rx Prednisone [predniSONE 10 mg 10 mg PO .TAPER #1 tab.ds.pk 05/27/17 05/28/17 Rx (6-Day Pack, 21 Tabs)] AtorvaSTATin [Lipitor] mg PO QHS 05/28/17 05/27/17 History Azithromycin [Zithromax Z-YENIFER] 250 mg PO DAILY #6 tablet 05/28/17 Unknown Rx ED Review of Systems ROS: Stated complaint: DIFF BREATHING Other details as noted in HPI Constitutional: denies: fever Respiratory: cough, shortness of breath, wheezing Physical Exam - Physical Exam Vital Signs: Vital Signs 08/24/17 08/24/17 08/24/17 08:39 08:59 09:00 Temperature 97.8 F Pulse Rate 109 H 99 H Respiratory 21 22 24 Rate Blood Pressure 151/94 Blood Pressure 149/77 [Right] O2 Sat by Pulse 98 100 100 Oximetry Physical Exam: GENERAL: The patient is well-developed well-nourished female sitting on stretcher with slightly increased work of breathing. [] HEENT: Normocephalic. Atraumatic. Extraocular motions are intact. Patient has moist mucous membranes. NECK: Supple. Trachea midline CHEST/LUNGS: Diffuse wheezing. There is respiratory distress noted. HEART/CARDIOVASCULAR: Regular. There is no tachycardia. There is no gallop rub or murmur. ABDOMEN: Abdomen is soft, nontender. Patient has normal bowel sounds. There is no abdominal distention. SKIN: There is no rash. There is no diaphoresis. NEURO: The patient is awake, alert, and oriented. The patient is cooperative. The patient has normal speech MUSCULOSKELETAL: There is no evidence of acute injury. ED Course Vital Signs 08/24/17 08/24/17 08/24/17 08:39 08:59 09:00 Temperature 97.8 F Pulse Rate 109 H 99 H Respiratory 21 22 24 Rate Blood Pressure 151/94 Blood Pressure 149/77 [Right] O2 Sat by Pulse 98 100 100 Oximetry - Reevaluation(s) Reevaluation #1: 08/24/17 12:12 Patient states she had new onset left chest heaviness. Patient does not appear to improve despite multiple breathing treatments. We'll admit the patient to hospital, repeat EKG and administer analgesics ED Medical Decision Making - Lab Data Result diagrams: 08/24/17 09:07 08/24/17 09:07 Laboratory Tests 08/24/17 08/24/17 09:07 09:07 WBC 4.9 RBC 4.38 Hgb 12.8 Hct 40.0 MCV 91 MCH 29 MCHC 32 RDW 14.3 Plt Count 229 Lymph % (Auto) 18.6 [place] % (Auto) 5.7 Eos % (Auto) 0.1 Baso % (Auto) 0.3 Lymph # 0.9 L [place] # 0.3 Eos # 0.0 Baso # 0.0 Seg Neutrophils % 75.3 H Seg Neutrophils # 3.7 Sodium 141 Potassium 4.4 Chloride 103.7 Carbon Dioxide 22 Anion Gap 20 BUN 7 Creatinine 0.7 Estimated GFR > 60 BUN/Creatinine Ratio 10 Glucose 122 H Calcium 9.4 Troponin T < 0.010 - EKG Data -: EKG Interpreted by Ar EKG shows normal: sinus rhythm Rate: normal - EKG Data When compared to previous EKG there are: no significant change Interpretation: unchanged when compared t (05/28/2017) 08/24/17 12:14 EKG #2 reveals sinus tachycardia at 114 bpm. No new ischemic changes seen - Radiology Data Radiology results: report reviewed (chest x-ray), image reviewed (chest x-ray) interpreted by me: Chest x-ray-no focal infiltrates, no pneumothorax AP CHEST: HISTORY: Shortness of breath AP view of the chest demonstrates a normal mediastinal and cardiac contour with clear lungs and normal bony and soft tissue structures. IMPRESSION: Unremarkable AP chest. Transcribed By: TTR Dictated By: JOANNA ODELL JR, MD Electronically Authenticated By: JOANNA ODELL JR, MD Signed Date/Time: 08/24/17925 DD/ 5 TD/TT: 08/24/17925 - Differential Diagnosis acute asthma exacerbation, pneumonia Critical care attestation.: If time is entered above; I have spent that time in minutes in the direct care of this critically ill patient, excluding procedure time. ED Disposition Clinical Impression: COPD exacerbation, Chest heaviness Disposition: OP ADMIT IP TO THIS HOSP Is pt being admited?: Yes Does the pt Need Aspirin: Yes Condition: Fair Instructions: Chronic Bronchitis (ED) Time of Disposition: 12:15 (hospitalist paged (Dr. Kevin))
[2017-08-24 09:28] LABS: Basophils % (Auto) 0.3 % (0.0-1.8); Eosinophils % (Auto) 0.1 % (0.0-4.3); Hemoglobin 12.8 gm/dl (10.1-14.3); Mean Corpuscular HGB Conc 32 % (30-34); Mean Corpuscular Hemoglobin 29 pg (28-32); Mean Corpuscular Volume 91 fl (79-97); Platelet Count 229 K/mm3 (140-440); Red Blood Count 4.38 M/mm3 (3.65-5.03); Red Cell Distribution Width 14.3 % (13.2-15.2); White Blood Count 4.9 K/mm3 (4.5-11.0)
--- NOTE | 2017-08-24 09:31 | XRay Report ---
AP CHEST: HISTORY: Shortness of breath AP view of the chest demonstrates a normal mediastinal and cardiac contour with clear lungs and normal bony and soft tissue structures. IMPRESSION: Unremarkable AP chest.
[2017-08-24 09:41] LABS: Anion Gap 20 mmol/L; BUN/Creatinine Ratio 10; Blood Urea Nitrogen 7 mg/dL (7-17); Calcium 9.4 mg/dL (8.4-10.2); Carbon Dioxide 22 mmol/L (22-30); Chloride 103.7 mmol/L (98-107); Glucose 122 mg/dL (65-100); Potassium 4.4 mmol/L (3.6-5.0); Sodium 141 mmol/L (137-145)
[2017-08-24] MEDS ORDERED: XOPENEX IH ONE (11:04)
[2017-08-24] MEDS ORDERED: NITRO-BID 2% TP ONE (12:10)
[2017-08-24] MEDS ORDERED: ZOFRAN IV ONE (12:10)
[2017-08-24] MEDS ORDERED: MORPHINE IV ONE (12:10)
[2017-08-24] MEDS ORDERED: ASPIRIN PO ONE (12:16)
--- NOTE | 2017-08-24 13:19 | History and Physical Report ---
History of Present Illness History of present illness: 56 YO Female with COPD, CHF Systolic (EF 35%), HTN, NM, HLD, Hypothyroidism, Barrets Esophagus, PVD, Obesity, Asthma presents to ED for evaluation. Pt states that she has been experiencing shortness of breath, productive cough, wheezing for the past 3 days with worsening symptoms over the past 12 hours. The patient states that her peak flows are low. Pt states that she was instructed by her primary physician to seek medical attention if her peak flows are less than 350 for 3 days in a row. The patient has taken prednisone and nebulizers every 4 hours without relief of symptoms. Pt seen and evaluated in ED and found to have COPD exacerbation complicated by Acute hypoxemic Respiratory failure. Pt admitted to medical floor. Past History Past Medical History: acute NM, COPD, heart failure, hypertension, hyperlipidemia, hypothyroidism Past Surgical History: hysterectomy, Other (Leg surgery) Social history: single Family history: no significant family history (reviewed) Medications and Allergies Allergies Allergy/AdvReac Type Severity Reaction Status Date / Time lisinopril [From Zestril] Allergy Shortness Verified 03/12/17 17:51 of Breath Home Medications Medication Instructions Recorded Confirmed Last Taken Type ALBUTEROL Inhaler [ProAir HFA 2 puff IH QID PRN #1 inhalation 10/02/14 08/24/17 05/27/17 Rx Inhaler] Pantoprazole [Protonix TAB] 40 mg PO BID #60 tablet 10/02/14 08/24/17 05/27/17 Rx ISOSORBIDE MONOnitrate [Imdur ER] 30 mg PO QDAY 05/25/17 08/24/17 05/27/17 History Losartan [Cozaar] 50 mg PO QDAY 05/25/17 08/24/17 05/27/17 History Mirtazapine [Remeron] 15 mg PO QHS 05/25/17 08/24/17 05/27/17 History Albuterol Sulfate [Albuterol 0.63% 0.63 mg IH TID PRN #30 ml 05/27/17 08/24/17 05/27/17 Rx NEBS] Apixaban [Eliquis] 5 mg PO BID 05/27/17 08/24/17 05/27/17 History Citalopram Hydrobromide [Celexa] 40 mg PO DAILY 08/24/17 08/24/17 Unknown History Fluticasone [Flonase] 1 spray NS QDAY 08/24/17 08/24/17 Unknown History Levothyroxine [Synthroid] 100 mcg PO QDAY 08/24/17 08/24/17 Unknown History Metoprolol [Lopressor] 25 mg PO BID 08/24/17 08/24/17 Unknown History Mometasone Furoate [Asmanex] 2 inhalation PO BID 08/24/17 08/24/17 Unknown History Montelukast [Singulair] 10 mg PO DAILY 08/24/17 08/24/17 Unknown History Nitroglycerin [Nitrostat] 0.4 mg SL Q5M PRN 08/24/17 08/24/17 Unknown History Review of Systems Constitutional: no weight loss, no weight gain, no fever, no chills Ears, nose, mouth and throat: no ear pain, no ear discharge, no tinnitis, no decreased hearing Cardiovascular: shortness of breath, no chest pain, no orthopnea Respiratory: no cough, no cough with sputum, no excessive sputum, no hemoptysis Gastrointestinal: no abdominal pain, no nausea, no vomiting, no diarrhea Genitourinary Female: no pelvic pain, no flank pain, no menorrhagia Rectal: no pain, no incontinence, no bleeding Musculoskeletal: no neck stiffness, no neck pain, no shooting arm pain, no arm numbness/tingling Integumentary: no rash, no pruritis, no redness, no sores, no wounds Neurological: no paralysis, no weakness, no parathesias, no numbness, no tingling Psychiatric: no anxiety, no memory loss, no change in sleep habits, no sleep disturbances, no insomnia Endocrine: no cold intolerance, no heat intolerance, no polyphagia, no excessive thirst, no polydipsia, no nocturia Hematologic/Lymphatic: no easy bruising, no easy bleeding Allergic/Immunologic: no urticaria, no allergic rhinitis, no wheezing Exam - Constitutional Vitals: Temp Pulse Resp BP Pulse Ox 97.8 F 117 H 34 H 128/66 95 08/24/17 08:39 08/24/17 12:27 08/24/17 12:26 08/24/17 12:27 08/24/17 12:00 General appearance: Present: mild distress - EENT Eyes: Present: PERRL ENT: hearing intact, clear oral mucosa - Neck Neck: Present: supple, normal ROM - Respiratory Respiratory: bilateral: diminished, rhonchi - Cardiovascular Heart Sounds: Present: S1 & S2. Absent: rub, click - Extremities Extremities: pulses symmetrical, No edema Peripheral Pulses: within normal limits - Abdominal General gastrointestinal: Present: soft, non-tender, non-distended, normal bowel sounds Female genitourinary: Present: normal - Integumentary Integumentary: Present: clear, warm, dry - Musculoskeletal Musculoskeletal: gait normal, strength equal bilaterally - Psychiatric Psychiatric: appropriate mood/affect, intact judgment & insight - Neurologic Neurologic: CNII-XII intact, moves all extremities Results - Labs CBC & Chem 7: 08/24/17 09:07 08/24/17 09:07 Labs: Abnormal lab results 08/24/17 08/24/17 Range/Units 09:07 09:07 Lymph # 0.9 L (1.2-5.4) K/mm3 Seg Neutrophils % 75.3 H (40.0-70.0) % Glucose 122 H (65-100) mg/dL Assessment and Plan - Patient Problems (1) COPD exacerbation Current Visit: Yes Status: Acute Plan to address problem: IV abx, IV steroids, incentive spirometry, supplemental oxygen, nebs, supportive care. (2) CHF (congestive heart failure) Current Visit: Yes Status: Chronic Qualifiers: Congestive heart failure type: systolic Plan to address problem: fluid restriction, afterload reduction, BNP, chest X ray, monitor uop q shift, diuresis, ensure negative fluid balance. (3) HTN (hypertension) Current Visit: Yes Status: Acute Plan to address problem: monitor bp q shift, continue medical management. (4) Acute respiratory failure Current Visit: No Status: Acute Plan to address problem: supplemental oxygen,nebs, aspiration precautions, supportive care, treat copd exacerbation. (5) DVT prophylaxis Current Visit: Yes Status: Acute
[2017-08-24] MEDS ORDERED: DULCOLAX PR PRN (13:25)
[2017-08-24] MEDS ORDERED: TYLENOL PO PRN (13:25)
[2017-08-24] MEDS ORDERED: ZOFRAN IV PRN (13:25)
[2017-08-24] MEDS ORDERED: MILK OF MAGNESIA PO PRN (13:25)
--- NOTE | 2017-08-24 15:24 | Cat Scan Report ---
CTA CHEST: HISTORY: Dyspnea. COMPARISON: 05/25/17. TECHNIQUE: Helical CT in 1.25mm intervals following IV contrast. Pulmonary embolus protocol. Sagittal and coronal reformatted images. Rotational MIP images. FINDINGS: Contrast bolus is satisfactory. No pulmonary embolus is identified. Thyroid gland: Normal. Tracheobronchial tree: Normal. Esophagus: Normal. Heart: Normal. Pericardium: Normal. Mediastinum: Normal. Lung Calixto: normal. Pleural Spaces: Normal. Musculoskeletal: Normal. Moderate ascites is noted in the upper abdomen. IMPRESSION: No evidence for pulmonary embolus. Unremarkable CT chest with contrast. Moderate ascites is identified in the upper abdomen.
[2017-08-24] MEDS: ZITHROMAX 500 MG in NACL 0.9% 250ML 250 ML IV SCH (15:32)
[2017-08-25 01:04] LABS: Creatine Kinase MB 1.5 ng/mL (0.0-4.0)
[2017-08-25] MEDS: PROVENTIL IH PRN ×3 (06:03→16:08)
[2017-08-25 09:29] LABS: Creatine Kinase MB 1.7 ng/mL (0.0-4.0)
[2017-08-25 09:30] LABS: Creatine Kinase 128 units/L (30-135)
[2017-08-25 14:44] LABS: Creatine Kinase MB 1.5 ng/mL (0.0-4.0)
[2017-08-25 14:45] LABS: Creatine Kinase 116 units/L (30-135)
[2017-08-25] MEDS: ZITHROMAX 500 MG in NACL 0.9% 250ML 250 ML IV SCH (15:47)
--- NOTE | 2017-08-25 17:37 | Progress Note ---
Assessment and Plan Assessment and Plan: 56 YO Female with COPD, CHF Systolic (EF 35%), HTN, [place], HLD, Hypothyroidism, Barrets Esophagus, PVD, Obesity, Asthma presents to ED for evaluation. Pt states that she has been experiencing shortness of breath, productive cough, wheezing for the past 3 days with worsening symptoms over the past 12 hours. The patient states that her peak flows are low. Pt states that she was instructed by her primary physician to seek medical attention if her peak flows are less than 350 for 3 days in a row. The patient has taken prednisone and nebulizers every 4 hours without relief of symptoms. Pt seen and evaluated in ED and found to have COPD exacerbation complicated by Acute hypoxemic Respiratory failure. Pt admitted to medical floor. - Patient Problems (1) COPD exacerbation Current Visit: Yes Status: Acute Plan to address problem: IV abx, IV steroids, incentive spirometry, supplemental oxygen, nebs, supportive care. Improving (2) CHF (congestive heart failure) Current Visit: Yes Status: Chronic Qualifiers: Congestive heart failure type: systolic Plan to address problem: fluid restriction, afterload reduction, BNP, chest X ray, monitor uop q shift, diuresis, ensure negative fluid balance. (3) HTN (hypertension) Current Visit: Yes Status: Acute Plan to address problem: monitor bp q shift, continue medical management. (4) Acute respiratory failure Current Visit: No Status: Acute Plan to address problem: supplemental oxygen,nebs, aspiration precautions, supportive care, treat copd exacerbation. (5) DVT prophylaxis Current Visit: Yes Status: Acute 6) Elevated D Dimer Around 5000.CTA negative Subjective Date of service: 08/25/17 Objective - Constitutional Vitals: Vital Signs - 12hr 08/25/17 08/25/17 08/25/17 06:00 06:12 07:30 Temperature 97.9 F Pulse Rate 87 Pulse Rate [ Anterior Bilateral Throughout] Pulse Rate [ 83 85 Posterior Bilateral Throughout] Respiratory 19 Rate Respiratory Rate [Anterior Bilateral Throughout] Respiratory 20 20 Rate [Posterior Bilateral Throughout] Blood Pressure 142/74 O2 Sat by Pulse 97 Oximetry 08/25/17 08/25/17 08/25/17 11:44 11:49 11:56 Temperature Pulse Rate Pulse Rate [ Anterior Bilateral Throughout] Pulse Rate [ 80 102 H Posterior Bilateral Throughout] Respiratory Rate Respiratory Rate [Anterior Bilateral Throughout] Respiratory 20 20 Rate [Posterior Bilateral Throughout] Blood Pressure O2 Sat by Pulse 97 Oximetry 08/25/17 08/25/17 16:08 16:18 Temperature Pulse Rate Pulse Rate [ 98 H 106 H Anterior Bilateral Throughout] Pulse Rate [ Posterior Bilateral Throughout] Respiratory Rate Respiratory 20 20 Rate [Anterior Bilateral Throughout] Respiratory Rate [Posterior Bilateral Throughout] Blood Pressure O2 Sat by Pulse Oximetry - Labs CBC & Chem 7: 08/24/17 09:07 08/24/17 09:07 Labs: Abnormal lab results 08/25/17 Range/Units 00:30 Total Creatine Kinase 136 H (30-135) units/L
[2017-08-26 08:36] VITALS: BP 147/70
[2017-08-26] MEDS: PROVENTIL IH PRN (08:59)
[2017-08-26] MEDS ORDERED: ZITHROMAX PO SCH (10:00)
[2017-08-26] MEDS ORDERED: PROVENTIL IH SCH ×2 (12:00→14:00)
--- NOTE | 2017-08-26 13:13 | Discharge Summary ---
Providers - Providers Date of Admission: 08/24/17 13:25 Date of discharge: 08/26/17 Attending physician: DAVID PÉREZ Primary care physician: [facility]UL[facility] MIXER Hospitalization Condition: Fair Hospital course: Assessment and Plan: 56 YO Female with COPD, CHF Systolic (EF 35%), HTN, [place], HLD, Hypothyroidism, Barrets Esophagus, PVD, Obesity, Asthma presents to ED for evaluation. Pt states that she has been experiencing shortness of breath, productive cough, wheezing for the past 3 days with worsening symptoms over the past 12 hours. The patient states that her peak flows are low. Pt states that she was instructed by her primary physician to seek medical attention if her peak flows are less than 350 for 3 days in a row. The patient has taken prednisone and nebulizers every 4 hours without relief of symptoms. Pt seen and evaluated in ED and found to have COPD exacerbation complicated by Acute hypoxemic Respiratory failure. Pt admitted to medical floor. - Patient Problems (1) COPD exacerbation Current Visit: Yes Status: Acute Plan to address problem: IV abx, IV steroids, incentive spirometry, supplemental oxygen, nebs, supportive care. Improved -will discharge on oral abx and tapering dose of prednisone (2) CHF (congestive heart failure) Current Visit: Yes Status: Chronic Qualifiers: Congestive heart failure type: systolic Plan to address problem: Improved (3) HTN (hypertension) Current Visit: Yes Status: Acute Plan to address problem: monitor bp q shift, continue medical management. Under control (4) Acute respiratory failure Current Visit: No Status: Acute Plan to address problem: supplemental oxygen,nebs, aspiration precautions, supportive care, treat copd exacerbation. Improved (5) DVT prophylaxis Current Visit: Yes Status: Acute 6) Elevated D Dimer Around 5000.CTA negative Disposition: DC-01 TO HOME OR SELFCARE Core Measure Documentation - Palliative Care Palliative Care/ Comfort Measures: Not Applicable - Core Measures Any of the following diagnoses?: none Exam - Constitutional Vitals: Temp Pulse Resp BP Pulse Ox 98.2 F 98 H 16 147/70 99 08/26/17 08:00 08/26/17 12:20 08/26/17 12:20 08/26/17 08:00 08/26/17 09:06 General appearance: Present: no acute distress, well-nourished - EENT Eyes: Present: PERRL ENT: hearing intact, clear oral mucosa - Neck Neck: Present: supple, normal ROM - Respiratory Respiratory effort: normal Respiratory: bilateral: CTA, rhonchi - Cardiovascular Heart rate: 76 Rhythm: regular Heart Sounds: Present: S1 & S2. Absent: rub, click - Extremities Extremities: pulses symmetrical, No edema Peripheral Pulses: within normal limits - Abdominal General gastrointestinal: Present: soft, non-tender, non-distended, normal bowel sounds Female genitourinary: Present: normal - Rectal Rectal Exam: deferred - Integumentary Integumentary: Present: clear, warm, dry - Musculoskeletal Musculoskeletal: gait normal, strength equal bilaterally - Psychiatric Psychiatric: appropriate mood/affect, intact judgment & insight - Neurologic Neurologic: CNII-XII intact, moves all extremities - Allied Health Allied health notes reviewed: nursing, case management Plan Activity: no restrictions Diet: low fat, low cholesterol, low salt Follow up with: PRIMARY CARE, [Primary Care Provider] - 3-5 Days
== END 2017-08-26 14:42 | disposition home or self-care (01) | DRG 189 ==
LOC: ED 08:36 → 3A 13:25
PROVIDERS: ADMIT Internal Medicine; ATTEND Internal Medicine
DX: J96.01 Acute respiratory failure with hypoxia (principal); J44.1 Chronic obstructive pulmonary disease with (acute) exacerbation; I50.22 Chronic systolic (congestive) heart failure; Z88.8 Allergy status to other drugs, medicaments and biological substances; I25.2 Old myocardial infarction; E78.00 Pure hypercholesterolemia, unspecified; Z87.891 Personal history of nicotine dependence; Z90.710 Acquired absence of both cervix and uterus; K22.70 Barrett's esophagus without dysplasia; Z79.82 Long term (current) use of aspirin; Z79.899 Other long term (current) drug therapy; I11.0 Hypertensive heart disease with heart failure; I73.9 Peripheral vascular disease, unspecified; E66.9 Obesity, unspecified; Z68.37 Body mass index [BMI] 37.0-37.9, adult; Z72.89 Other problems related to lifestyle
CPT/HCPCS: 36415; 71010; 71275; 80048; 82550; 82553; 83880; 84484; 85025; 85379; 93005; 93010; 94640; 94644; 94760; 96365; 96375; J0456; J2270; J2405; J2920; J2930; J3475; J7050; Q9967

== ENCOUNTER 2017-10-13 06:11 | Day surgery (SDC) | payer BC ==
[2017-10-13] MEDS ORDERED: NACL 0.9% 500 ML 500 ML IV SCH (07:00)
[2017-10-13] MEDS ORDERED: HALFPRIN EC PO ONE (07:04)
[2017-10-13 07:23] LABS: INR 0.91 (0.87-1.13)
[2017-10-13] MEDS ORDERED: HEPARIN/NS 5000 UNIT/500ML(CATH LAB) 1,000 ML IR ONE (08:28)
[2017-10-13] MEDS ORDERED: HEPARIN 10,000 UNITS/10 ML ONE (08:28)
[2017-10-13] MEDS ORDERED: XYLOCAINE 2% INFILTRATI ONE (08:29)
[2017-10-13] MEDS ORDERED: CALAN ONE (08:29)
[2017-10-13] MEDS ORDERED: SUBLIMAZE ONE (08:29)
[2017-10-13] MEDS ORDERED: VERSED ONE (08:29)
[2017-10-13] MEDS ORDERED: NITROGLYCERIN SYRINGE 3 ML ONE (08:30)
[2017-10-13] MEDS ORDERED: BABY ASPIRIN PO SCH (10:00)
--- NOTE | 2017-10-13 11:28 | Short Stay Summary ---
Short Stay Documentation Date of service: 10/13/17 - History H&P: obtained from office - Allergies and Medications Current Medications: Allergies lisinopril [From Zestril] Allergy (Verified 03/12/17 17:51) Shortness of Breath Home Medications Medication Instructions Recorded Confirmed Last Taken Type ALBUTEROL Inhaler [ProAir HFA 2 puff IH QID PRN #1 inhalation 08/26/17 10/13/17 10/13/17 Rx Inhaler] 2 puff Albuterol Sulfate [Albuterol 0.63% 0.63 mg IH TID PRN 30 Days #100 08/26/1705/2210/12/17 Rx NEBS] packet unit dose Apixaban [Eliquis] 5 mg PO BID #60 tablet 08/26/17 10/13/17 10/13/17 Rx 5mg Citalopram Hydrobromide [Celexa] 40 mg PO DAILY #30 tablet 08/26/17 10/13/1704/21 Rx 40mg Fluticasone [Flonase] 1 spray NS QDAY #1 bottle 08/26/17 10/13/17 10/12/17 Rx 1 spray ISOSORBIDE MONOnitrate [Imdur ER] 30 mg PO QDAY #30 tablet 08/26/17 10/13/1704/21 Rx 30mg Ipratropium [Atrovent NEB] 0.5 mg IH Q6HRT #100 ml 08/26/17 10/13/17 09/23/17 Rx unit dose Levothyroxine [Synthroid] 100 mcg PO QDAY #30 tablet 08/26/17 10/13/17 10/12/17 Rx 100mcg Losartan [Cozaar] 50 mg PO QDAY #30 tablet 08/26/17 10/13/17 10/12/17 Rx 50mg Metoprolol [Lopressor TAB] 25 mg PO BID #60 tablet 08/26/17 10/13/17 10/12/17 Rx 25mg Mirtazapine [Remeron] 15 mg PO QHS #30 tablet 08/26/17 10/13/17 10/12/17 Rx 15mg Mometasone Furoate [Asmanex] 2 inhalation PO BID #1 aer.[email or web address] 08/26/1710/13/18 Rx 2 puff Montelukast [Singulair] 10 mg PO DAILY #30 tablet 08/26/17 10/13/17 10/12/17 Rx 10mg Pantoprazole [Protonix TAB] 40 mg PO BID #60 tablet 08/26/17 10/13/17 10/12/17 Rx 40mg Aspirin EC [Aspirin Enteric Coated 81 mg PO DAILY 10/13/17 10/13/17 09/18/17 History TAB] 81mg Enoxaparin [Lovenox] 80 mg SQ Q12HR 10/13/17 10/13/17 10/12/17 History 80mg Furosemide [Lasix TAB] 20 mg PO DAILY 10/13/17 10/13/17 10/12/17 History 20mg Potassium Chloride [Klor-Con 10] 10 meq PO DAILY 10/13/17 10/13/17 10/12/17 History 10meq oxyCODONE /ACETAMINOPHEN [Percocet 1 tab PO BID PRN 10/13/17 10/13/17 10/09/17 History 5/325 mg] 1 tab Active Medications Aspirin (Baby Aspirin) 81 mg PO QDAY ROGER Sodium Chloride (Nacl 0.9% 500 Ml) 500 mls @ 50 mls/hr IV DIRECT ROGER Stop: 10/13/17 16:59 Last Admin: 10/13/17 07:15 Dose: 50 mls/hr - Brief post op/procedure progress note Date of procedure: 10/13/17 Pre-op diagnosis: chest pain Post-op diagnosis: same Procedure: see report Anesthesia: local Estimated blood loss: none Pathology: none - Disposition Condition at discharge: Good Disposition: DC-01 TO HOME OR SELFCARE - Discharge Diagnoses (1) Chest pain Status: Chronic Qualifiers: Ischemic chest pain type: unspecified angina pectoris type (2) HTN (hypertension) Status: Chronic Qualifiers: Hypertension type: essential hypertension Qualified Code(s): I10 - Essential (primary) hypertension (3) Non-ischemic cardiomyopathy Status: Chronic Comment: can't take ACEI due to allergy (4) Pulmonary embolism Status: Chronic Qualifiers: Acute cor pulmonale presence: without acute cor pulmonale Short Stay Discharge Plan Activity: advance as tolerated Diet: low fat, low cholesterol, low salt Wound: keep clean and dry Follow up with: KP DE OLIVEIRA MD [Primary Care Provider] - 7 Days
--- NOTE | 2017-10-13 12:54 | Cardiac Catherization Report ---
LEFT HEART CATHETERIZATION CLINICAL INFORMATION: A 56-year-old -[place] female with recurrent chest pain despite negative stress test, cardiomyopathy, EF is 30%. The patient, in view of recurrent chest pain and cardiomyopathy, is here for left heart catheterization. The patient had previous cath in 2010 showed normal coronaries, but it was done via the right groin approach because of radial spasm. Moderate sedation was supervised with 1 mg of Versed and 100 mcg of fentanyl. Total sedation time was 16 minutes, supervised started 8:42 a.m. and finished at 8:58 a.m. PROCEDURE DETAILS: Left heart catheterization performed via the right common femoral artery, sterile technique, local anesthesia, 5-Mongolian groin sheath inserted. PROCEDURE FINDINGS: Left system engaged with JL3.5. Left main is a medium caliber vessel, it is patent, bifurcates into medium caliber LAD that is patent, but small diagonal 1, 2 and 3 are patent, caliber vessel size less than 2.0. Circumflex is a small to medium caliber vessel that is patent. Small OM1 and OM2 less than 2 mm. RCA is engaged with 3RDC catheter comes from the left cusp, it is a small caliber vessel, approximately 2.0 to 2.25 that is patent with small PDA less than 2 mm in size. LV gram done in ANGELLA and [place] view shows moderate LV dysfunction, EF 30% to 35%. LVEDP is 17 mmHg, LV 150/100 and aortic is 150/90. No gradient across the aortic valve pullback. A 5-Mongolian catheter ( ) guidewire, 5-Mongolian groin sheath was discontinued. Manual pressure held. No hematoma, no bleeding. SUMMARY: 1. Patent coronary vessels. Branch vessels are small caliber. 2. Nonischemic cardiomyopathy, EF approximately 30% to 35% with normal left end-diastolic pressure. 3. Continue risk factor modification. Discussed in detail with the patient and the patient's family. JOB# [id number] GIOVANNI/BLACK
[2017-10-13 13:38] VITALS: BP 122/85
== END 2017-10-13 13:35 | disposition home or self-care (01) ==
LOC: CATHLABREC 06:11
PROVIDERS: ATTEND Internal Medicine
DX: I42.9 Cardiomyopathy, unspecified (principal); I11.0 Hypertensive heart disease with heart failure; I50.22 Chronic systolic (congestive) heart failure; J44.9 Chronic obstructive pulmonary disease, unspecified; E78.5 Hyperlipidemia, unspecified; Z86.711 Personal history of pulmonary embolism; Z79.01 Long term (current) use of anticoagulants; Z79.899 Other long term (current) drug therapy; Z87.891 Personal history of nicotine dependence
CPT/HCPCS: 36415; 85610; 85730; 93005; 93010; 93458; 99156; 99157; C1894; J1644; J2250; J3010; J7040; Q9967